=== PATIENT | female | born 1980 | race Caucasian/White ===

== ENCOUNTER → 2018-05-01 | Outpatient (CLI) | payer OTHER | END | disposition home or self-care (01) | LOC: LAB EV 12:57 → LAB SHORT 12:57 | DX: N39.0 Urinary tract infection, site not specified (principal) | CPT/HCPCS: 87077; 87086; 87186 ==

== ENCOUNTER 2023-03-31 12:16 | Observation (INO) | payer OTHER ==
[~2023-03-31] VITALS: Ht 167.6 cm; Wt 81.7 kg
[2023-03-31 16:14] VITALS: BP 164/97
[2023-03-31] MEDS ORDERED: NADO20 PO (16:17)
--- NOTE | 2023-03-31 16:52 | NUR ---
PT ARRIVED TO UNIT FROM ED TRANSFERRED INDDEPENDENTLY FROM WC TO BED. ORIENTED TO ROOM/CALL LIGHT. PT DENIES ANY CIGARETTES, LIGHTERS, ETC. REPORTS PAIN TOLERABLE AT THIS TIME AND DENIES N/V. TAKING SIPS OF CLEARS. CALL LIGHT IN REACH.
--- NOTE | 2023-03-31 17:52 | NUR ---
SUMMARY PT ARRIVED TO UNIT FROM ED THIS AFTERNOON. ORIENTED TO ROOM/CALL LIGHT. PT HAS BEEN SIPPING CLEAR LIQUIDS. REPORTED INCREASE OF PAIN TO ABD/BACK OF 6/10 THIS EVENING, MEDICATED PER ORDERS W/ 0.5 MG DILAUDID. PT REPORTS PAIN IMPROVED TO 2/10 BUT FEELS LIGHT HEADED. RESTING IN BED W/CALL LIGHT IN REACH SPOUSE BEDSIDE.
[2023-03-31] MEDS ORDERED: BUPROPION XL150 M1 PO (17:58)
[2023-03-31] MEDS ORDERED: HYDCHL12.5 PO (17:59)
[2023-03-31 19:31] VITALS: BP 130/82
[2023-04-01] VITALS (16 sets, daily range): BP systolic 114–158; BP diastolic 71–98
[2023-04-01 05:29] LABS: BASOPHILS ABSOLUTE AUTO 0.03 K/mm3 (0.00-0.23); BASOPHILS PERCENT AUTO 0 % (0-2); EOSINOPHILS ABSOLUTE AUTO 0.41 K/mm3 (0.00-0.68); EOSINOPHILS PERCENT AUTO 6 % (0-6); Hematocrit 36.2 % (33.0-51.0); Hemoglobin 12.2 g/dL (11.5-16.0); IMMATURE GRAN ABSOLUTE AUTO 0.01 K/mm3 (0.00-0.10); IMMATURE GRAN PERCENT AUTO 0 % (0-1); LYMPHOCYTES ABSOLUTE AUTO 1.42 K/mm3 (0.84-5.20); LYMPHOCYTES PERCENT AUTO 20 % (21-46); MONOCYTES ABSOLUTE AUTO 0.56 K/mm3 (0.16-1.47); MONOCYTES PERCENT AUTO 8 % (4-13); Mean Corpuscular HGB 31.8 pg (26.0-34.0); Mean Corpuscular HGB Conc 33.7 g/dL (31.5-36.5); Mean Corpuscular Volume 94 fL (80-100); Mean Platelet Volume 10.4 fL (9.1-12.4); NEUTROPHILS ABSOLUTE AUTO 4.65 K/mm3 (1.96-9.15); NEUTROPHILS PERCENT AUTO 66 % (41-73); Platelet Count 155 K/mm3 (150-400); RDW Coefficient Variation 13.3 % (11.7-14.2); RDW Standard Deviation 46.3 fL (35.1-46.3); Red Blood Cell Count 3.84 M/mm3 (3.80-5.20); White Blood Cell Count 7.08 K/mm3 (4.00-11.30)
[2023-04-01 06:21] LABS: Albumin, Blood 3.1 g/dL (3.4-5.0); Bilirubin, Total 0.5 mg/dL (0.1-1.0); Creatinine, Blood 0.75 mg/dL (0.40-1.00); Globulin, Blood 3.1 g/dL (2.2-4.0); Potassium, Blood 3.9 mmol/L (3.5-5.5); Total Protein, Blood 6.2 g/dL (6.4-8.2)
--- NOTE | 2023-04-01 07:37 | NUR ---
DR GARCIA IN TO SEE PT.
--- NOTE | 2023-04-01 08:10 | NUR ---
SUMMARY MED FOR [place],PAIN/[place] LAST NIGHT.PENDING OR TDAY.NPO.
--- NOTE | 2023-04-01 12:43 | NUR ---
PT TO OR
--- NOTE | 2023-04-01 12:51 | NUR ---
Patient up to Ambulate independently. Gait steady. PT USED RESTROOM AND AMBULATED TO HALLWAY WHERE GURN WAS. JEWELRY LEFT IN ROOM. AT BEDSIDE. History, Chart, Medications and Allergies reviewed before start of procedure. Patient confirms NPO status and agrees with scheduled surgery. Pre-Op teaching done. Pt verbalizes understanding.
--- NOTE | 2023-04-01 18:29 | NUR ---
PT ARRIVED TO RM 224 FROM PACU AT 1745 STOOD WITH ASSISTANCE AND TRANSFERRED FROM [facility] TO BED. EMOTIONAL/TEARFUL. LAP INCISIONS X4 W/TISSUE ADHESIVE TO ABD CDI. VSS. PT SIPPING CLEAR LIQUIDS. REPORTED PAIN "MODERATE", MEDICATED PER ORDERS. DENIES NAUSEA. FAMILY BEDSIDE. CALL LIGHT IN REACH.
[2023-04-02 07:30] VITALS: BP 102/72
--- NOTE | 2023-04-02 07:58 | NUR ---
SUMMARY NO EVENTS NOTED THROUGH THE NIGHT, PT IS A&O X4, INDEPENDENT IN ROOM, LAP SITE X4, C/D/I, VSS, ON RA, TOLERATING CLEAR FLUIDS, VOIDING WNL, REPORT GIVEN TO MARCIN ROD, CALL LIGHT IN REACH
[2023-04-02] MEDS ORDERED: AMOCLA875 PO (11:15)
[2023-04-02] MEDS ORDERED: OXAYDO5 M1 PO (11:16)
== END 2023-04-02 12:00 | disposition home or self-care (01) ==
LOC: ER 12:16 → SURS 12:25
PROVIDERS: ADMIT Surgery
DX: K80.12 Calculus of gallbladder with acute and chronic cholecystitis without obstruction (principal); K82.1 Hydrops of gallbladder; Z88.5 Allergy status to narcotic agent; Z88.0 Allergy status to penicillin; R10.9 Unspecified abdominal pain
CPT/HCPCS: 36415; 71046; 74177; 76705; 80053; 81025; 83690; 85025; 88304; 96365; 96374; 96375; 96376; 99285-25; A9270; G0378; J0461; J0696; J1100; J1170; J1885; J2250; J2405; J2704; J3010; J7120; Q9967

== ENCOUNTER → 2023-08-02 | Outpatient (CLI) | payer OTHER ==
[~2023-08-02] MED LIST: AMOCLA875 PO; BUPROPION XL150 M1 PO; HYDCHL12.5 PO; NADO20 PO; OXAYDO5 M1 PO
[2023-08-06 09:08] LABS: HPV GENOTYPE 16 Not Detected; HPV GENOTYPE 18 Not Detected; HPV HIGH RISK Not Detected; HPV SOURCE Not Provided
== END ==
LOC: LAB SHORT 09:34 → LAB 09:34
PROVIDERS: Family Medicine
DX: Z12.4 Encounter for screening for malignant neoplasm of cervix (principal)
CPT/HCPCS: 87624; G0123

== ENCOUNTER 2024-01-05 08:12 | Day surgery (SDC) | payer OTHER ==
[~2024-01-05] VITALS: Ht 165.1 cm; Wt 84.9 kg
[~2024-01-05 08:12] MED LIST changes: +Lactated Ringer's 1,000 ML IV ONE; +propofoL 50 ML IV ONE
[2024-01-05] MEDS ORDERED: Lactated Ringer's 1,000 ML IV ONE (09:01)
[2024-01-05 10:41] VITALS: BP 109/89
== END 2024-01-05 10:06 | disposition home or self-care (01) ==
LOC: ORSCSDS 08:12
PROVIDERS: Surgery
PROC: 0DBP8ZX Excision of Rectum, Via Natural or Artificial Opening Endoscopic, Diagnostic (ICD-10-PCS; principal; 2024-01-05 09:15)
DX: Z12.11 Encounter for screening for malignant neoplasm of colon (principal); K62.1 Rectal polyp; D12.8 Benign neoplasm of rectum; Z83.719 Family history of colon polyps, unspecified; Z79.899 Other long term (current) drug therapy
CPT/HCPCS: 88305; J2704; J7120